=== PATIENT | female | born 1985 | race Caucasian/White ===

== ENCOUNTER 2017-08-10 07:31 | Day surgery (SDC) | payer BC ==
[2017-08-10] MEDS ORDERED: TORAdol 30 mg Injection IV ONE (07:32)
[2017-08-10] MEDS ORDERED: SUBLIMAZE 100 MCG/2 ML IV ONE (07:32)
[2017-08-10] MEDS ORDERED: Zofran 4 MG/2 ML VIAL IV ONE (07:32)
[2017-08-10] MEDS ORDERED: Decadron 4 MG INJ IV ONE (07:32)
[2017-08-10] MEDS ORDERED: Versed 2 MG/2 ML Injection IV ONE (07:32)
[2017-08-10] MEDS ORDERED: DIPRIVAN 200 MG/20 ML IV ONE (07:32)
[2017-08-10] MEDS ORDERED: Lactated Ringers 1,000 ML IV SCH (08:00)
[2017-08-10] MEDS ORDERED: Lactated Ringers 1,000 ML IV ONE (09:08)
[2017-08-10] MEDS ORDERED: Sensorcaine 0.25% 10 ML ONE (09:08)
[2017-08-10 10:43] VITALS: O2SAT 99
[2017-08-10 10:57] VITALS: BP 116/69; PULSE 71
--- NOTE | 2017-08-11 11:30 | OP ---
PROCEDURE DATE/TIME: 08/10/2017 0921 PREOPERATIVE DIAGNOSIS: Complicated left groin hidradenitis. POSTOPERATIVE DIAGNOSIS: Complicated left groin hidradenitis. PROCEDURE: Excision left groin hidradenitis approximately 5 x 2 cm skin and subcutaneous tissue. PROCEDURE PERFORMED BY: Nora Seymour M.D. COMPLICATIONS: None. ESTIMATED BLOOD LOSS: Minimal. ANESTHESIA: General. SPECIMEN: Left groin hidradenitis. HISTORY: This is a 32 year-old female who has been suffering from left groin hidradenitis. She has had multiple infections over the past few years. The site has gotten worse. It continues to be chronically inflamed and tender. She has elected for excision. The patient was seen in the preoperative area. Her H&P completely reviewed. test negative. The site was reviewed with the patient and marked. The patients consent was confirmed. DESCRIPTION OF PROCEDURE: She was brought to the operative suite. Anesthesia induced. She was prepped and draped in usual sterile fashion. The left leg frog-leg slightly for exposure. We then did a complete time out. We verified the correct side and our markings as well. The patient has had a complex patch of hidradenitis in this area. There is some pus that is able to be expressed. This is a dirty wound. We completely excised the area that was infected taking all the marginal tissues here. This specimen was about 5 x 2 cm and involved the skin and subcutaneous tissues which were effected and it was sent to pathology. We used Bovie cautery for hemostasis. We irrigated thoroughly. The wound was packed with Iodoform gauze and left open. Sterile dressing placed over top. The patient tolerated the procedure very well. There were no immediate complications. I have discussed her wound care with the patient preoperatively as well as with her family postoperatively and preoperatively. She will follow up with me in approximately one to two weeks for further follow up.
== END 2017-08-10 11:13 | disposition home or self-care (01) ==
LOC: SDC 07:31
PROVIDERS: ATTEND Surgery
PROC: 0JBC0ZZ Excision of Pelvic Region Subcutaneous Tissue and Fascia, Open Approach (ICD-10-PCS; principal; 2017-08-10)
DX: L73.2 Hidradenitis suppurativa (principal)
CPT/HCPCS: 00400; J1100; J1885; J2250; J2405; J2704; J3010

== ENCOUNTER 2021-01-13 04:18 | Emergency (ER) | payer BC ==
[2021-01-13 04:37] LABS: Appearance SLIGHTLY CLOUDY (CLEAR); Bacteria FEW /HPF (NEGATIVE); Bilirubin NEGATIVE (NEGATIVE); Blood LARGE Ery/ul (0-5); Epithelial Cells FEW /HPF (FEW); Glucose NEGATIVE (NEGATIVE); Ketones NEGATIVE (NEGATIVE); Leukocyte Esterase NEGATIVE (NEGATIVE); Mucus SLIGHT /HPF (NEGATIVE); Nitrite NEGATIVE (NEGATIVE); Protein,Urine Dip NEGATIVE (Negative); Specific Gravity 1.012 (1.005-1.025); Urobilinogen NEGATIVE mg/dL (0-1); WBC 0-2 /HPF (0-5)
--- NOTE | 2021-01-13 05:04 | ERPHSYRPT ---
- History of Present Illness Source: patient Patient Subjective Stated Complaint: Patient states " I woke up around 0330 this am to pee and when I wiped I had a large amount of red/pink blood on the entire piece of toilet paper." Triage Nursing Assessment: Patient arrived to ED and ambulated back to room without difficulty. Patient transferred to bed without difficulty. Patient A/O times 4. Patient denies SOB. Patient denies chest pain. Lungs clear bilateral A/P throughout. Cap refill < 3 seconds. No S/S of respiratory distress noted. Respiratory regular and easy non-labored. + BS times 4 quads. ABD soft, round, non-distended. Patient denies any pain upon palpitation. Patient states she does have a feeling of pressure in her ABD. + radial and pedal pulses noted bilateral. No dependent edema noted. Patient denies any N/V. Patient denies any loose stools. Patient denies any pain or burning upon urination. Urine collected and urine yellow in color with no odor present. Patient hasn't been able to see OB MD because she just found out and her appt isn't for another week. Patient states appetite and fluid intake has been normal. RN asked patient when she urinated if she continued to have bleeding and patient stated it was head of cytogenetics and more pink in color. Timing/Duration: other (90min) Activites at Onset: sleep Quality: pressure Onset Location: generalized flank Pain Radiation: none Severity of Pain-Max: mild Severity of Pain-Current: mild Prior abdominal problems: none Sexual intercourse history: non-contributory () Modifying Factors: Improves With: nothing Associated Symptoms: denies symptoms Hx Tetanus, Diphtheria Vaccination/Date Given: Yes Hx Influenza Vaccination/Date Given: Yes Hx Pneumococcal Vaccination/Date Given: No <GRAHAM DA SILVA - Last Filed: 01/13/21 06:56> <ZENON MAYORGA - Last Filed: 01/13/21 07:55> - History of Present Illness Time Seen by Provider: 01/13/21 07:35 Physician History: 35 yo wf w last period December 05 present w mild vag bleeding x90min. Pt has mild back pain. + home preg and pt has not seen her Ob. She denies dysuria/hematuria/fever/N/V/D. She does not know her Rh type. 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 - Vaccination Dates Date of 2cond Vaccination (if applicable): 11/05/20 <GRAHAM DA SILVA - Last Filed: 01/13/21 06:56> - Review of Systems Constitutional: No Symptoms Eyes: No Symptoms Ears, Nose, & Throat: No Symptoms Respiratory: No Symptoms Cardiac: No Symptoms Abdominal/Gastrointestinal: No Symptoms Genitourinary Symptoms: Vaginal Bleeding Musculoskeletal: No Symptoms Skin: No Symptoms Neurological: No Symptoms Psychological: No Symptoms Endocrine: No Symptoms Hematologic/Lymphatic: No Symptoms Immunological/Allergic: No Symptoms <GRAHAM DA SILVA - Last Filed: 01/13/21 06:56> - Past Medical History Pertinent Past Medical History: Yes Neurological History: No Pertinent History ENT History: No Pertinent History Cardiac History: No Pertinent History Respiratory History: No Pertinent History Endocrine Medical History: No Pertinent History Musculoskeletal History: No Pertinent History GI Medical History: Hemorrhoids History: No Pertinent History Psycho-Social History: No Pertinent History Female Reproductive Disorders: No Pertinent History - Past Surgical History Past Surgical History: No Neuro Surgical History: No Pertinent History Cardiac: No Pertinent History Respiratory: No Pertinent History Gastrointestinal: No Pertinent History Genitourinary: No Pertinent History Musculoskeletal: No Pertinent History Female Surgical History: No Pertinent History - Social History Smoking Status: Former smoker Exposure to second hand smoke: No Drug Use: none Patient Lives Alone: No Significant Family History: no pertinent family hx - Female History Hx Last Menstrual Period: Dec 05 2020 Hx Now: Yes <GRAHAM DA SILVA - Last Filed: 01/13/21 06:56> - Physical Exam General Appearance: no apparent distress Eye Exam: PERRL/EOMI, eyes nml inspection Ears, Nose, Throat Exam: normal ENT inspection, TMs normal, pharynx normal, moist mucous membranes Neck Exam: normal inspection, non-tender, supple, full range of motion Respiratory Exam: normal breath sounds, lungs clear, airway intact Cardiovascular Exam: regular rate/rhythm, normal heart sounds, normal peripheral pulses Gastrointestinal/Abdomen Exam: soft, normal bowel sounds, No tenderness Back Exam: normal inspection, normal range of motion Extremity Exam: normal inspection Neurologic Exam: alert, oriented x 3, cooperative, yard associate II-XII nml as tested, normal mood/affect, nml station & gait, sensation nml Skin Exam: normal color, warm, dry Lymphatic Exam: No adenopathy SpO2 Interpretation: normal SpO2: 98 O2 Delivery: Room Air <AVINASHGRAHAM - Last Filed: 01/13/21 06:56> - Nursing Vital Signs Nursing Vital Signs: Initial Vital Signs Pulse Rate 78 01/13/21 04:31 Respiratory Rate 18 01/13/21 04:31 Blood Pressure 119/66 01/13/21 04:31 O2 Sat by Pulse Oximetry 98 01/13/21 04:31 Pain Scale Pain Intensity 4 - Course Nursing assessment & vital signs reviewed: Yes <AVINASHGRAHAM - Last Filed: 01/13/21 06:56> - Radiology Ultrasound Exam Pelvis Ultrasound: discussed w/radiologist (Per sap basis administrator and IUP was identified. IUP is 6 weeks 3 days with a heart rate of 105.) <ZENON MAYORGA - Last Filed: 01/13/21 07:55> Ordered Tests: Active Orders 24 hr Category Date Time Status OB <14 WKS 1ST GESTATION [US] Stat Exams 01/13/21 04:56 Ordered CBC W DIFF Stat Lab 01/13/21 04:48 Completed HCG, Quantitative (Inhouse) Stat Lab 01/13/21 04:48 Completed HCG,QUALITATIVE URINE Stat Lab 01/13/21 04:35 Completed UA W/RFX UR CULTURE Stat Lab 01/13/21 04:29 Completed Lab/Rad Data: Laboratory Result Diagrams 01/13/21 04:48 Laboratory Results 01/13/21 01/13/21 01/13/21 Range/Units 04:48 04:48 04:48 WBC 7.7 (4.0-10.5) K/mm3 RBC 3.95 L (4.1-5.4) M/mm3 Hgb 12.4 (12.0-16.0) gm/dl Hct 38.7 (35-47) % MCV 98.0 (78-100) fl MCH 31.4 (26-32) pg MCHC 32.0 (32-36) g/dl RDW 13.5 (11.5-14.0) % Plt Count 248 (150-450) K/mm3 MPV 9.8 (7.5-11.0) fl Gran % 65.5 (36.0-66.0) % Eos # (Auto) 0.17 (0-0.5) Absolute Lymphs (auto) 1.62 (1.0-4.6) Absolute Monos (auto) 0.81 (0.0-1.3) Lymphocytes % 21.2 L (24.0-44.0) % Monocytes % 10.6 (0.0-12.0) % Eosinophils % 2.2 (0.00-5.0) % Basophils % 0.5 (0.0-0.4) % Absolute Granulocytes 5.01 (1.4-6.9) Basophils # 0.04 (0-0.4) Beta HCG, Quant 97406 mIU/ml Urine Color (YELLOW) Urine Appearance (CLEAR) Urine pH (5-6) Ur Specific Bazine (1.005-1.025) Urine Protein (Negative) Urine Ketones (NEGATIVE) Urine Blood (0-5) Dillon/ul Urine Nitrite (NEGATIVE) Urine Bilirubin (NEGATIVE) Urine Urobilinogen (0-1) mg/dL Ur Leukocyte Esterase (NEGATIVE) Urine WBC (Auto) (0-5) /HPF Urine RBC (Auto) (0-2) /HPF U Epithel Cells (Auto) (FEW) /HPF Urine Bacteria (Auto) (NEGATIVE) /HPF Urine Mucus (Auto) (NEGATIVE) /HPF Urine Culture Reflexed (NO) Urine Glucose (NEGATIVE) mg/dL Urine HCG, Qual (Negative) Rh Factor POSITIVE 01/13/21 01/13/21 Range/Units 04:35 04:29 WBC (4.0-10.5) K/mm3 RBC (4.1-5.4) M/mm3 Hgb (12.0-16.0) gm/dl Hct (35-47) % MCV (78-100) fl MCH (26-32) pg MCHC (32-36) g/dl RDW (11.5-14.0) % Plt Count (150-450) K/mm3 MPV (7.5-11.0) fl Gran % (36.0-66.0) % Eos # (Auto) (0-0.5) Absolute Lymphs (auto) (1.0-4.6) Absolute Monos (auto) (0.0-1.3) Lymphocytes % (24.0-44.0) % Monocytes % (0.0-12.0) % Eosinophils % (0.00-5.0) % Basophils % (0.0-0.4) % Absolute Granulocytes (1.4-6.9) Basophils # (0-0.4) Beta HCG, Quant mIU/ml Urine Color YELLOW (YELLOW) Urine Appearance SLIGHTLY CLOUDY (CLEAR) Urine pH 6.0 (5-6) Ur Specific Bazine 1.012 (1.005-1.025) Urine Protein NEGATIVE (Negative) Urine Ketones NEGATIVE (NEGATIVE) Urine Blood LARGE (0-5) Dillon/ul Urine Nitrite NEGATIVE (NEGATIVE) Urine Bilirubin NEGATIVE (NEGATIVE) Urine Urobilinogen NEGATIVE (0-1) mg/dL Ur Leukocyte Esterase NEGATIVE (NEGATIVE) Urine WBC (Auto) 0-2 (0-5) /HPF Urine RBC (Auto) 6-10 (0-2) /HPF U Epithel Cells (Auto) FEW (FEW) /HPF Urine Bacteria (Auto) FEW (NEGATIVE) /HPF Urine Mucus (Auto) SLIGHT (NEGATIVE) /HPF Urine Culture Reflexed NO (NO) Urine Glucose NEGATIVE (NEGATIVE) mg/dL Urine HCG, Qual POSITIVE (Negative) Rh Factor - Progress Counseled pt/family regarding: lab results, diagnosis, need for follow-up <GRAHAM DA SILVA - Last Filed: 01/13/21 06:56> - Progress Progress: improved Air Movement: good Blood Culture(s) Obtained: No Antibiotics given: No <ZENON MAYORGA - Last Filed: 01/13/21 07:55> - Progress Progress Note: 01/13/21 06:38 Pt resting comfortably and refuses any pain meds. Waiting for US at 7:00AM. 01/13/21 06:56 Pt stable and awaiting trans-vag US at shift change. Disposition expected discharge Care turned over to Dr. Mayorga (GRAHAM DA SILVA) Patient endorsed to Dr. Mayorga at approximately 7 AM. Ultrasound was pending. Dr. Mayorga was advised to follow-up on ultrasound and make final disposition. Ultrasound was performed. Ultrasound shows an IUP at 6 weeks 3 days with a heart rate of 105. Patient currently asymptomatic. No active vaginal bleeding. No pelvic pressure or pain. Patient currently on vitamins. She has an appointment scheduled with her [employer] [employer] physician next week. Patient is Rh+. No indication for RhoGam. Patient diagnosed with threatened . 01/13/21 07:45 01/13/21 07:49 No indication for further work-up at this time. Patient states she will make sure that her [employer] physician performs a pelvic exam at her visit next week. (ZENON MAYORGA) <GRAHAM DA SILVA - Last Filed: 01/13/21 06:56> - Departure Departure Disposition: Home Critical Care Time: No <ZENON MAYORGA - Last Filed: 01/13/21 07:55> - Departure Clinical Impression: Threatened Condition: Stable Referrals: SANTIAGO MAYBERRY MD [Primary Care Provider] - Additional Instructions: Discharge/Care Plan SANJAY MUNOZ was seen on 01/13/21 in the Emergency Room. The patient was counseled regarding Diagnosis,Lab results, Imaging studies, need for follow up and when to return to the Emergency Room. Prescriptions given: Discharge Note I have spoken with the patient and/or caregivers. I have explained the patient's condition, diagnosis and treatment plan based on the information available to me at this time. I have answered the patient's and/or caregiver's questions and addressed any concerns. The patient and/or caregivers have as good understanding of the patient's diagnosis, condition and treatment plan as can be expected at this point. The vital signs have been stable. The patient's condition is stable and appropriate for discharge from the emergency department. The patient will pursue further outpatient evaluation with the primary care physician or other designated or consulting physician as outlined in the discharge instructions. The patient and/or caregivers are agreeable to this plan of care and follow-up instructions have been explained in detail. The patient and/or caregivers have received these instruction. The patient/and or caregivers are aware that any significant change in condition or worsening of symptoms should prompt an immediate return to this or the closest emergency department or call 911.
[2021-01-13 05:16] LABS: Absolute Neutrophil Ct (ANC) 5.01 (1.4-6.9); BASOPHIL % 0.5 % (0.0-0.4); Basophil (Absolute #) 0.04 (0-0.4); Eosinophil % 2.2 % (0.00-5.0); Eosinophil (Absolute #) 0.17 (0-0.5); Hematocrit 38.7 % (35-47); Hemoglobin 12.4 gm/dl (12.0-16.0); Lymphocyte (Absolute #) 1.62 (1.0-4.6); Lymphocytes % 21.2 % (24.0-44.0); Mean Corpuscular Hemoglobin 31.4 pg (26-32); Mean Platelet Volume 9.8 fl (7.5-11.0); Monocyte (Absolute #) 0.81 (0.0-1.3); Monocytes % 10.6 % (0.0-12.0); Neutrophil % 65.5 % (36.0-66.0); Platelet Count 248 K/mm3 (150-450); Red Blood Count 3.95 M/mm3 (4.1-5.4); Red Cell Distribution Width 13.5 % (11.5-14.0); White Blood Count 7.7 K/mm3 (4.0-10.5)
[2021-01-13 06:10] VITALS: BP 113/72; PULSE 68
[2021-01-13 06:36] VITALS: O2SAT 98
--- NOTE | 2021-01-13 08:39 | XRAY ---
Indication: Bleeding. Two-dimensional transvaginal early OB ultrasound performed. Comparison: None Uterus anteverted with a single intrauterine gestational sac and single pole. Mean crown-rump length is 0.60 cm corresponding to 6 weeks 3 days. heart rate 104 bpm. No abnormal subchorionic fluid. Left and right ovaries are sonographically unremarkable. No suspicious adnexal mass or free fluid. Impression: Single viable intrauterine measuring 6 weeks 3 days. Expected date confinement is September 05, 2021. Nothing acute.
== END 2021-01-13 08:10 | disposition home or self-care (01) ==
LOC: ED 04:18
DX: O20.0 Threatened abortion (principal); Z3A.01 Less than 8 weeks gestation of pregnancy
CPT/HCPCS: 36415; 76801; 81001; 84702; 84703; 85025; 86901; 99283

== ENCOUNTER 2021-07-13 10:00 | Observation (INO) | payer BC ==
[2021-07-13 11:37] VITALS: BP 123/79
== END 2021-07-13 12:12 | disposition home or self-care (01) ==
LOC: WHC 10:00 → OB 11:03
PROVIDERS: ADMIT Obstetrics & Gynecology; ATTEND Obstetrics & Gynecology
DX: O24.419 Gestational diabetes mellitus in pregnancy, unspecified control (principal); Z3A.34 34 weeks gestation of pregnancy
CPT/HCPCS: 59025; 99213; G0378; 81002

== ENCOUNTER 2021-07-20 10:25 | Observation (INO) | payer BC ==
[2021-07-20 12:00] VITALS: BP 122/75; PULSE 93
--- NOTE | 2021-07-20 12:22 | XRAY ---
Indication: Low accelerations. Ultrasound biophysical profile study performed. Comparison: None Single intrauterine with heart rate 116 BPM. Four-quadrant MONSERRAT is 14.3 cm, largest pocket 4.2 cm. 2 points given for breathing, movements, tone, and amniotic fluid volume. Impression: Total biophysical profile score is 8 out of 8.
== END 2021-07-20 12:30 | disposition home or self-care (01) ==
LOC: OB 10:25
PROVIDERS: ADMIT Obstetrics & Gynecology; ATTEND Obstetrics & Gynecology
DX: Z34.03 Encounter for supervision of normal first pregnancy, third trimester (principal); Z3A.33 33 weeks gestation of pregnancy
CPT/HCPCS: 59025; 76819; G0378

== ENCOUNTER 2021-07-27 16:53 | Observation (INO) | payer BC ==
[2021-07-27 17:26] VITALS: BP 128/76; PULSE 90
== END 2021-07-27 17:35 | disposition home or self-care (01) ==
LOC: OB 16:53
PROVIDERS: ADMIT Obstetrics & Gynecology; ATTEND Obstetrics & Gynecology
DX: O24.419 Gestational diabetes mellitus in pregnancy, unspecified control (principal); Z3A.34 34 weeks gestation of pregnancy

== ENCOUNTER 2021-08-03 09:31 | Observation (INO) | payer BC ==
[2021-08-03 09:52] VITALS: BP 129/68; PULSE 96
== END 2021-08-03 10:20 | disposition home or self-care (01) ==
LOC: MED SURG 09:31
PROVIDERS: ADMIT Obstetrics & Gynecology; ATTEND Obstetrics & Gynecology
DX: O24.419 Gestational diabetes mellitus in pregnancy, unspecified control (principal); Z3A.35 35 weeks gestation of pregnancy
CPT/HCPCS: 59025; G0378

== ENCOUNTER 2021-08-10 11:51 | Observation (INO) | payer BC ==
[2021-08-10 13:50] VITALS: BP 125/72; PULSE 100
== END 2021-08-10 12:20 | disposition home or self-care (01) ==
LOC: OB 11:51
PROVIDERS: ADMIT Obstetrics & Gynecology; ATTEND Obstetrics & Gynecology
DX: O24.419 Gestational diabetes mellitus in pregnancy, unspecified control (principal); Z3A.36 36 weeks gestation of pregnancy
CPT/HCPCS: 59025; G0378

== ENCOUNTER 2021-08-17 10:31 | Observation (INO) | payer BC ==
[2021-08-17 10:59] VITALS: BP 132/78; PULSE 104
== END 2021-08-17 11:10 | disposition home or self-care (01) ==
LOC: OB 10:31
PROVIDERS: ADMIT Obstetrics & Gynecology; ATTEND Obstetrics & Gynecology
DX: O24.419 Gestational diabetes mellitus in pregnancy, unspecified control (principal); Z3A.37 37 weeks gestation of pregnancy
CPT/HCPCS: 59025; G0378

== ENCOUNTER 2021-08-24 10:27 | Observation (INO) | payer BC ==
[2021-08-24 11:56] VITALS: BP 139/88; PULSE 88
--- NOTE | 2021-08-24 11:57 | XRAY ---
Indication: growth. 2-dimensional OB ultrasound performed. Comparison: July 31, 2021. Again single viable intrauterine in cephalic presentation. heart rate 148 BPM. Posterior placenta without abruption/previa. BPD measures 9.39 cm corresponding to 38 weeks 2 days. HC measures 33.03 cm corresponding to 37 weeks 4 days. AC measures 34.03 cm corresponding to 38 weeks 0 days. FL measures 7.23 cm corresponding to 37 weeks 0 days. Estimated weight 7 lbs. 4 oz., +/- 1 pound 1 ounce. Approximately 50 percentile. MONSERRAT is 10.7 cm. Impression: Again single viable intrauterine with mean gestational age 37 weeks 5 days. Normal progression of . No new/acute findings.
== END 2021-08-24 12:10 | disposition home or self-care (01) ==
LOC: EDSTATUS 10:51 → OB 10:52
PROVIDERS: ADMIT Obstetrics & Gynecology; ATTEND Obstetrics & Gynecology
DX: Z34.03 Encounter for supervision of normal first pregnancy, third trimester (principal); Z3A.35 35 weeks gestation of pregnancy
CPT/HCPCS: 59025; 76816; G0378

== ENCOUNTER 2021-08-28 23:29 | Inpatient (IN) | payer BC ==
[2021-08-29 08:56] LABS: Amphetamine,Urine NEGATIVE (NEGATIVE); Barbiturate,Urine NEGATIVE (NEGATIVE); Benzodiazepine,Urine NEGATIVE (NEGATIVE); Cocaine,Urine NEGATIVE (NEGATIVE); Methadone,Urine NEGATIVE (NEGATIVE); Opiate,Urine NEGATIVE (NEGATIVE); PCP,Urine NEGATIVE (NEGATIVE); THC,Urine NEGATIVE (NEGATIVE)
[2021-08-29 15:05] LABS: Basophil (Absolute #) 0.01 (0-0.4); Eosinophil (Absolute #) 0.12 (0-0.5); Hematocrit 41.1 % (35-47); Hemoglobin 13.5 gm/dl (12.0-16.0); Lymphocytes % 12.7 % (24.0-44.0); Mean Cell Volume 97.4 fl (78-100); Mean Corpuscular Hgb Concent. 32.8 g/dl (32-36); Mean Platelet Volume 11.2 fl (7.5-11.0); Monocyte (Absolute #) 0.78 (0.0-1.3); Monocytes % 6.2 % (0.0-12.0); Platelet Count 270 K/mm3 (150-450); Red Blood Count 4.22 M/mm3 (4.1-5.4); Red Cell Distribution Width 13.5 % (11.5-14.0); White Blood Count 12.6 K/mm3 (4.0-10.5)
[2021-08-29] MEDS: Lactated Ringers 1,000 ML IV SCH (20:21)
[2021-08-29] MEDS ORDERED: STADOL 2 MG IV PRN (21:15)
[2021-08-29] MEDS: CYTOTEC PO SCH (23:35)
[2021-08-29] MEDS ORDERED: PITOCIN 30 UNITS/ LR 500 ML 30 UNITS/500 ML PLAST..BAG IV SCH (23:45)
[2021-08-30] MEDS: Lactated Ringers 1,000 ML IV SCH ×3 (00:12→09:31)
[2021-08-30] MEDS ORDERED: Nubain 10 MG/ML IV PRN (00:42)
[2021-08-30] MEDS ORDERED: Lactated Ringers 1,000 ML IV ONE (02:17)
[2021-08-30] MEDS ORDERED: Ephedrine Sulfate 50 MG/ML IV PRN (02:17)
[2021-08-30] MEDS ORDERED: FENTANYL 2 MCG-BUPIV 0.125%-NS 250 ML Epidur 250 ML EPIDURAL SCH (02:30)
[2021-08-30] MEDS: CYTOTEC PO SCH ×5 (03:52→20:42)
[2021-08-30] MEDS ORDERED: XYLOCAINE 1% HCL 20 ML MDV IJ PRN (07:00)
[2021-08-30] MEDS ORDERED: PITOCIN 30 UNITS/ LR 500 ML 30 UNITS/500 ML PLAST..BAG IV SCH (07:00)
[2021-08-30] MEDS ORDERED: Dermoplast Spray TP PRN (12:33)
[2021-08-30] MEDS ORDERED: CORTISONE 1% CREAM TP PRN (12:33)
[2021-08-30] MEDS ORDERED: LANSINOH 40 GM TOP PRN (12:33)
[2021-08-30] MEDS: TUCKS TP PRN (14:06)
[2021-08-30] MEDS: MOTRIN 400 MG PO PRN ×2 (16:24→23:09)
[2021-08-30] MEDS ORDERED: Adacel Vial IM ONE (18:00)
[2021-08-30] MEDS: TYLENOL EXTRA STRENGTH 500 MG PO PRN (20:11)
[2021-08-30] MEDS: Colace 100 MG PO SCH (23:09)
[2021-08-31 01:10] VITALS: O2SAT 98
[2021-08-31] MEDS: TYLENOL EXTRA STRENGTH 500 MG PO PRN ×3 (02:34→20:47)
[2021-08-31 06:00] LABS: Hematocrit 35.4 % (35-47); Hemoglobin 11.3 gm/dl (12.0-16.0); Mean Cell Volume 99.4 fl (78-100); Mean Corpuscular Hemoglobin 31.7 pg (26-32); Mean Corpuscular Hgb Concent. 31.9 g/dl (32-36); Mean Platelet Volume 10.8 fl (7.5-11.0); Platelet Count 228 K/mm3 (150-450); Red Blood Count 3.56 M/mm3 (4.1-5.4); Red Cell Distribution Width 13.7 % (11.5-14.0); White Blood Count 18.2 K/mm3 (4.0-10.5)
[2021-08-31 07:01] LABS: Lymphocytes 13 % (24-44); Monocyte 3 % (0.0-12.0); Neutrophils 84 % (36.0-66.0); Total Cells Counted 100
[2021-08-31 07:03] LABS: ANISOCYTOSIS 1+; Platelet Estimate NORMAL (NORMAL); Poikilocytosis 1+
[2021-08-31] MEDS: MOTRIN 400 MG PO PRN ×2 (08:39→16:35)
--- NOTE | 2021-08-31 09:00 | PCM.NOTE ---
Date and Time: 08/31/21857 Subjective Assessment: PPD 1 SP PT RESTING IN BED AND DOING WELL WITHOUT COMPLAINTS VSS AFEBRILE ABD; SOFT UTERUS; FIRM LOCHIA; MILD A/P SP PPD 1 ANTICIPATE DISCHARGE TOMORROW HGB; STABLE OBJECTIVE DATA Vital Signs: Vital Signs - 24 hr Temp Pulse Resp BP BP BP Pulse Ox 08/31/21 08:00 97.4 F 93 H 18 121/73 08/31/21 02:00 97.6 F 90 18 124/70 98 08/30/21 20:00 97.5 F 105 H 18 149/70 98 08/30/21 14:30 97.7 F 113 H 18 126/68 08/30/21 14:00 97.7 F 114 H 20 129/74 08/30/21 13:30 97.7 F 110 H 20 126/71 08/30/21 13:00 97.7 F 110 H 20 130/80 08/30/21 12:45 97.7 F 110 H 20 126/68 08/30/21 12:30 97.7 F 111 H 20 120/76 08/30/21 12:15 97.7 F 116 H 20 140/60 99 08/30/21 12:00 97.7 F 126 H 18 148/71 99 08/30/21 11:28 97.7 F 114 H 20 08/30/21 11:15 97.7 F 114 H 20 08/30/21 11:00 97.7 F 114 H 20 146/66 08/30/21 10:45 97.7 F 133 H 20 146/66 08/30/21 10:30 97.7 F 132 H 20 147/69 08/30/21 10:15 97.7 F 131 H 20 147/69 100 08/30/21 10:00 97.7 F 114 H 20 08/30/21 09:45 97.7 F 148 H 20 140/72 99 08/30/21 09:30 97.7 F 133 H 20 128/77 99 08/30/21 09:15 97.7 F 136 H 20 129/70 99 08/30/21 09:00 97.7 F 116 H 20 141/78 99 Pain Assessment - Last Documented Pain Intensity 5 Pain Scale Used 0-10 Pain Scale Intake and Output: Intake & Output 0108/29/21 08/30/21 08/31/21 11:59 11:59 11:59 11:59 Intake Total 1500 500 Output Total 250 Balance 1250 500 Weight 93.406 kg 93.406 kg Lab Results: Lab Results-Last 24 Hours 08/31/21 Range/Units 05:49 WBC 18.2 H (4.0-10.5) K/mm3 RBC 3.56 L (4.1-5.4) M/mm3 Hgb 11.3 L (12.0-16.0) gm/dl Hct 35.4 (35-47) % MCV 99.4 (78-100) fl MCH 31.7 (26-32) pg MCHC 31.9 L (32-36) g/dl RDW 13.7 (11.5-14.0) % Plt Count 228 (150-450) K/mm3 MPV 10.8 (7.5-11.0) fl Segmented Neutrophils 84 H (36.0-66.0) % Lymphocytes (Manual) 13 L (24-44) % Monocytes (Manual) 3 (0.0-12.0) % Platelet Estimate NORMAL (NORMAL) RBC Morphology ABNORMAL Poikilocytosis 1+ Anisocytosis 1+ Assessment/Plan (1) Gestational diabetes Current Visit: Yes Status: Acute Code(s): O24.419 - GESTATIONAL DIABETES MELLITUS IN , UNSP CONTROL (2) Vaginal delivery Current Visit: Yes Status: Acute Code(s): O80 - ENCOUNTER FOR FULL-TERM UNCO MPLICATED DELIVERY
[2021-08-31] MEDS: Colace 100 MG PO SCH ×2 (10:23→20:47)
[2021-08-31] MEDS: FERREX 150 PO SCH (10:23)
[2021-08-31] MEDS: TUCKS TP PRN (19:12)
[2021-09-01] MEDS: MOTRIN 400 MG PO PRN ×2 (02:05→12:29)
[2021-09-01 02:11] VITALS: PULSE 91
[2021-09-01] MEDS: TYLENOL EXTRA STRENGTH 500 MG PO PRN (06:25)
--- NOTE | 2021-09-01 08:00 | PCM.NOTE ---
Date and Time: 09/01/21 0759 Subjective Assessment: ppd 2 pt resting in bed and doing well vss afebrile abd;soft uterus; firm lochia; mild a/p sp ppd 2 dc home today fu office 3 wks OBJECTIVE DATA Vital Signs: Vital Signs - 24 hr Temp Pulse Resp BP BP 09/01/21 02:11 97.7 F 91 H 18 118/58 08/31/21 21:02 98.2 F 86 18 147/69 08/31/21 08:00 97.4 F 93 H 18 121/73 Pain Assessment - Last Documented Pain Intensity 4 Pain Scale Used 0-10 Pain Scale Intake and Output: Intake & Output 08/29/21 08/30/21 08/31/21 09/01/21 11:59 11:59 11:59 11:59 Intake Total 1500 500 Output Total 250 Balance 1250 500 Weight 93.406 kg 93.406 kg Assessment/Plan (1) Gestational diabetes Current Visit: Yes Status: Acute Code(s): O24.419 - GESTATIONAL DIABETES MELLITUS IN , UNSP CONTROL (2) Vaginal delivery Current Visit: Yes Status: Acute Code(s): O80 - ENCOUNTER FOR FULL-TERM UNCOMPLICATED DELIVERY
--- NOTE | 2021-09-01 08:02 | PCM.DS ---
Discharge Summary Date of Admission: 08/29/21 22:00 Admitting Physician: EVANGELINA SILVER DO Consults: Consults on Case 08/30/21 02:18 Notify Anesthesia Provider PRN 08/30/21 20:25 Navigation ONCE Primary Care Provider: SANTIAGO MAYBERRY MD Allergies Allergies bee venom protein (honey bee) Allergy (Severe, Verified 08/03/21 09:53) Anaphylactic Reaction Hospital Summary - Hospital Course Hospital Course: pt admitted on aug 30 for cytotec induction who was gesational diabetic diet controlled at 39 wks gestation and delivered live baby boy without complication via on aug 31. during period did well and stable and now stable for discharge. pt advised to fu in office in 3 wks for care and all questions answered to her satisfaction. - Vitals & Intake/Output Vital Signs: Vital Signs Temperature 97.7 F 09/01/21 02:11 Pulse Rate 91 H 09/01/21 02:11 Respiratory Rate 18 09/01/21 02:11 Blood Pressure 118/58 09/01/21 02:11 O2 Sat by Pulse Oximetry 98 08/31/21 02:00 Intake & Output: Intake & Output 08/29/21 08/30/21 08/31/21 09/01/21 11:59 11:59 11:59 11:59 Intake Total 1500 500 Output Total 250 Balance 1250 500 Weight 93.406 kg 93.406 kg - Lab Result Diagrams: 08/31/21 05:49 Final Diagnosis/Problem List - Final Discharge Diagnosis/Problem (1) Gestational diabetes Current Visit: Yes Status: Acute Code(s): O24.419 - GESTATIONAL DIABETES MELLITUS IN , UNSP CONTROL (2) Vaginal delivery Current Visit: Yes Status: Acute Code(s): O80 - ENCOUNTER FOR FULL-TERM UNCOMPLICATED DELIVERY - Discharge Disposition: Home, Self-Care Condition: Stable Prescriptions: No Action No Reportable Medications [No Reported Medications] Follow up with: SANTIAGO MAYBERRY MD [Primary Care Provider] - EVANGELINA SILVER DO [ACTIVE STAFF] - 3 weeks (no heavy liftng fu in office in 3 wks for evaluation)
[2021-09-01 08:40] LABS: HBsAg Screen Negative (Negative)
[2021-09-01] MEDS: Colace 100 MG PO SCH (09:32)
[2021-09-01] MEDS: FERREX 150 PO SCH (09:32)
[2021-09-01 09:51] VITALS: BP 118/54
[2021-09-01] MEDS: TUCKS TP PRN (12:29)
== END 2021-09-01 13:20 | disposition home or self-care (01) | DRG 807 ==
LOC: EDSTATUS 23:37 → OB 08-29 06:46 → OBSVTOIN 08-29 22:00 → MED SURG 08-31 21:32
PROVIDERS: ADMIT Obstetrics & Gynecology; ATTEND Obstetrics & Gynecology
PROC: 10E0XZZ Delivery of Products of Conception, External Approach (ICD-10-PCS; principal; 2021-08-30)
PROC: 0KQM0ZZ Repair Perineum Muscle, Open Approach (ICD-10-PCS; 2021-08-30)
PROC: 3E0P7VZ Introduction of Hormone into Female Reproductive, Via Natural or Artificial Opening (ICD-10-PCS; 2021-08-30)
DX: O70.1 Second degree perineal laceration during delivery (principal); Z37.0 Single live birth; O24.410 Gestational diabetes mellitus in pregnancy, diet controlled; Z3A.39 39 weeks gestation of pregnancy; Z20.828 Contact with and (suspected) exposure to other viral communicable diseases
CPT/HCPCS: 36415; 80307; 84112; 85025; 87340; G0378; J0595; J2300; J2590; A9270-GY

== ENCOUNTER 2024-07-10 07:29 | Day surgery (SDC) | payer BC ==
[2024-07-10] MEDS ORDERED: CEFAZOLIN 2 GM/100 ML NaCl 2 GM/100 ML IVPB IV ONE (07:55)
[2024-07-10 07:56] LABS: HCG URINE TEST NEGATIVE (NEGATIVE)
[2024-07-10] MEDS ORDERED: Pepcid 20 MG VIAL IV ONE (07:56)
[2024-07-10] MEDS ORDERED: Reglan 10 MG/2 ML ONE (07:56)
[2024-07-10] MEDS ORDERED: Transderm Scop 1.5MG Patch ONE (07:56)
[2024-07-10 07:59] VITALS: RESP 16; O2SAT 99
[2024-07-10] MEDS: CEFAZOLIN 2 GM/100 ML NaCl 2 GM/100 ML IVPB IV SCH (08:00)
[2024-07-10] MEDS: Pepcid 20 MG VIAL IV ONE (08:00)
[2024-07-10] MEDS: Transderm Scop 1.5MG Patch TOP PRN (08:01)
[2024-07-10] MEDS: Reglan 10 MG/2 ML IV ONE (08:01)
[2024-07-10] MEDS ORDERED: Lactated Ringers 1,000 ML IV ONE ×2 (08:01→09:15)
[2024-07-10] MEDS: Lactated Ringers 1,000 ML IV ONE (08:02)
[2024-07-10] MEDS ORDERED: Sensorcaine 0.25% 10 ML ONE (09:15)
[2024-07-10] MEDS ORDERED: DIPRIVAN 200 MG/20 ML IV ONE ×2 (09:20→10:21)
[2024-07-10] MEDS ORDERED: Sodium Chloride 0.9% 1000 ML 1,000 ML ONE (10:08)
[2024-07-10] MEDS ORDERED: SUBLIMAZE 100 MCG/2 ML ONE (10:12)
[2024-07-10] MEDS ORDERED: Decadron 4 MG INJ ONE (10:21)
[2024-07-10] MEDS ORDERED: ROCURONIUM BROMIDE IV ONE (10:21)
[2024-07-10] MEDS ORDERED: Zofran 4 MG/2 ML VIAL ONE (10:21)
[2024-07-10] MEDS ORDERED: TORAdol 30 mg Injection ONE (10:21)
[2024-07-10] MEDS ORDERED: BRIDION 200MG/2ML IV ONE (10:21)
[2024-07-10 11:55] VITALS: TEMP 97.8
[2024-07-10 12:00] VITALS: BP 128/78; PULSE 85
--- NOTE | 2024-07-12 11:38 | OP ---
SURGERY DATE/TIME: 07/10/2024 [id number] PREOPERATIVE DIAGNOSIS: Contraceptive care, desiring permanent sterilization. POSTOPERATIVE DIAGNOSIS: Contraceptive care, desiring permanent sterilization. PROCEDURE: Laparoscopic bilateral salpingectomy. SURGEON: Jaswinder Keller DO [employer] SYSTEMS ADMINISTRATOR: Tash Correia ANESTHESIA: General. ESTIMATED BLOOD LOSS: Minimal. COMPLICATIONS: None. DESCRIPTION OF PROCEDURE AND FINDINGS: The risks, benefits, indications and alternatives of the procedure were reviewed with the patient prior to the procedure. The patient understood the risks of infection, bleeding, bowel injury, bladder injury, ureteral injury, pelvic infection, thromboembolic disorder, possible in the future as a result of permanent sterilization. Understands the risk of ectopic and understands the possible risk of even getting in spite of having a salpingectomy. The patient understood the risks. The patient understood the fact that she will have her fallopian tubes removed. However, does understand all risks associated with the possible future chance of and knows that this is a permanent procedure. All other forms of control were discussed with the patient prior to the procedure. The patient was given the options of Depo shot, the IUD, the NuvaRing, control pills and any other control methods had been discussed prior to the procedure. At this point, the patient was taken to the operating room, given general sedation, placed in the dorsal lithotomy position. Prepped and draped in the usual sterile fashion. A weighted speculum was then placed in the patient's vagina and the cervix was then dilated with endocervical dilators and the uterine manipulator was then placed as a means to manipulate the uterus then elevate the uterus during the procedure. The patient was then turned to the patient's abdomen where a 5 mm skin incision was made in the umbilical fold. A 5 mm trocar and sleeve were advanced under direct visualized where pneumoperitoneum was obtained with 4 L of CO2 gas. A second incision was made in the left lateral quadrant where originally a 5 mm incision was made and 5 mm trocar and sleeve were advanced under direct visualization. An additional 8 mm incision was made 2 cm above the symphysis pubis where 8 mm trocar and sleeve were advanced under direct visualization. A survey of the patient's pelvis and abdomen revealed entirely normal anatomy. The uterus was normal size and bilateral adnexa appear to be within normal limits. From this point, an endograsper was used to elevate the left fallopian tube and the LigaSure was placed on the mesosalpinx region where it was clamped, coagulated and cut taking down through the entire mesosalpinx region and excising the entire portion of the left fallopian tube and hemostasis was obtained. The same procedure was performed on the right side where the right fallopian tube was elevated with the endograsper and the LigaSure was placed on the mesosalpinx towards the cornual region of the uterus where it was excised in its entirety and hemostasis was obtained. From this point, the tissue was removed. We surveyed the patient's pelvis and revealed normal anatomy with no bleeding that was noted from the mesosalpinx. At this point, all instruments were removed from the patient's abdominal region and the incisions were closed with 4-0 Monocryl suture with subsequent Dermabond. The patient was then taken out of the dorsal lithotomy position. Was taken out of anesthesia and was then taken to the recovery room in stable condition. All instruments and laps were accounted for x2.
== END 2024-07-10 12:02 | disposition home or self-care (01) ==
LOC: SDC 07:29
PROVIDERS: ATTEND Obstetrics & Gynecology
DX: Z30.2 Encounter for sterilization (principal)
CPT/HCPCS: 58661; 81025; J0690; J1100; J1885; J2405; J2704; J3010; A9270-GY